=== PATIENT | female | born 1965 | race African-American/Black ===

== ENCOUNTER 2020-02-14 17:10 | Emergency (ER) | payer OTHER ==
[~2020-02-14] VITALS: Ht 162.6 cm; Wt 77.0 kg
[2020-02-14 17:14] VITALS: BP 122/73
[2020-02-14] MEDS ORDERED: IV NORMAL SALINE 1,000ML 1,000 ML IV ONE (17:45)
[2020-02-14] MEDS ORDERED: ONDANSETRON PF 4 MG/2 ML VIAL. IVP ONE ×2 (17:45→18:15)
[2020-02-14] MEDS ORDERED: MORPHINE SULFATE 4 MG/ML DISP.SYRIN. IV ONE ×2 (17:45→19:45)
[2020-02-14] MEDS ORDERED: IV NORMAL SALINE 1,000ML 1,000 ML IV SCH (18:15)
[2020-02-14 18:30] LABS: CALCIUM 10.2 mg/dL (8.5-10.1); GFR 70.5; POTASSIUM 3.6 mmol/L (3.5-5.1)
[2020-02-14] MEDS ORDERED: IOHEXOL 300 MG/ML 75 ML VIAL. IV ONE (18:30)
[2020-02-14 18:31] LABS: BASO % 0 % (0-3); EOS % 0 % (0-3); HEMATOCRIT 40.9 % (36.0-47.0); HEMOGLOBIN 13.7 g/dL (12.0-15.5); LYMPH # 1.4 x10^3/uL (1.0-4.8); LYMPH % 14 % (24-48); MEAN CORPUSCULAR HEMOGLOBIN 29 pg (25-35); MEAN CORPUSCULAR HGB CONC 34 g/dL (31-37); MEAN CORPUSCULAR VOLUME 88 fL (79-100); MONO # 0.6 x10^3/uL (0.0-1.1); MONO % 6 % (0-9); NEUT # 8.2 x10^3uL (1.8-7.7); NEUT % 80 % (31-73); PLATELET COUNT 316 x10^3/uL (140-400); RED BLOOD COUNT 4.67 x10^6/uL (3.50-5.40); WHITE BLOOD COUNT 10.3 x10^3/uL (4.0-11.0)
[2020-02-14 18:35] LABS: TOTAL BILIRUBIN 0.3 mg/dL (0.2-1.0)
--- NOTE | 2020-02-14 18:43 | PHYS DOC ---
Past History Past Medical History: No Pertinent History, Other Additional Past Medical Histor: back problem Alcohol Use: None Adult General Chief Complaint Chief Complaint: ABDOMINAL PAIN HPI HPI Patient is a 54-year-old female who presents with abdominal pain. Onset was this morning at 0600 hrs. without any known inciting event or trauma. Nothing known makes better, nothing is been ingested to attempt to alleviate her pain. Certain body positions make worse, she has not been able to eat since onset. Pain is generalized and diffuse, reports greatest pain in bilateral lower quadrants. She has history of numerous C-sections, still has her appendix. She denies any fever, no COVID-19 contact, no chest pain, shortness of breath, urinary symptoms, or changes in bowel habits. Patient does admit abdominal pain per above, associated nausea with x1 episode of nonbloody bilious nonbloody emesis, feelings of anorexia, and generalized fatigue. Review of Systems Review of Systems Fourteen body systems of review of systems have been reviewed. See HPI for pertinent positives and negative responses, other burns all other systems are negative, non-pertinent or non-contributory Current Medications Current Medications Current Medications Medications (Trade) Dose Ordered Sig/Victor Manuel Start Time Stop Time Status Last Admin Dose Admin Iohexol (Omnipaque 300 Mg/ml) 75 ml 1X ONCE 02/14/20 18:30 02/14/20 18:31 DC Morphine Sulfate (Morphine 4mg Syringe) 4 mg 1X ONCE 02/14/20 17:45 02/14/20 17:57 DC 02/14/20 17:58 4 MG Ondansetron HCl (Zofran) 4 mg 1X ONCE 02/14/20 18:15 02/14/20 18:28 DC Sodium Chloride 1,000 ml @ 1,000 mls/hr Q1H 02/14/20 18:15 02/14/20 19:14 Allergies Allergies Allergies Coded Allergies Type Severity Reaction Last Updated Verified meloxicam Allergy Unknown 02/14/20 Yes sulfamethoxazole Allergy Unknown 02/14/20 Yes trimethoprim Allergy Unknown 02/14/20 Yes Physical Exam Physical Exam Constitutional: Well developed, well nourished, moderate distress, non-toxic appearance. Ambulatory to ER room HENT: Normocephalic, atraumatic, bilateral external ears normal, oropharynx moist, no oral exudates, nose normal. Eyes: PERRLA, EOMI, conjunctiva normal, no discharge. Neck: Normal range of motion, no tenderness, supple, no stridor. Cardiovascular: Heart rate regular, sinus rhythm, no murmurs rubs or gallops Lungs & Thorax: Bilateral breath sounds clear to auscultation Abdomen: Bowel sounds normal, soft, guarding present, diffuse tenderness with moderate palpation, positive rebound, no masses, no pulsatile masses. Nonsurgical abdomen, no peritoneal signs Skin: Warm, dry, no erythema, no rash. Back: No tenderness, no CVA tenderness. Extremities: No tenderness, no cyanosis, no clubbing, ROM intact, no edema. Neurologic: Alert and oriented X 3, grossly normal motor & sensory function, no focal deficits noted. Psychologic: Affect normal, judgement normal, mood normal. Current Patient Data Vital Signs Vital Signs Date Time Temp Pulse Resp B/P (MAP) Pulse Ox O2 Delivery O2 Flow Rate FiO2 02/14/20 17:58 18 99 02/14/20 17:14 98.2 76 122/73 (89) Room Air Lab Results Laboratory Tests Test 02/14/20 17:25 White Blood Count 10.3 x10^3/uL (4.0-11.0) Red Blood Count 4.67 x10^6/uL (3.50-5.40) Hemoglobin 13.7 g/dL (12.0-15.5) Hematocrit 40.9 % (36.0-47.0) Mean Corpuscular Volume 88 fL (79-100) Mean Corpuscular Hemoglobin 29 pg (25-35) Mean Corpuscular Hemoglobin Concent 34 g/dL (31-37) Red Cell Distribution Width 14.0 % (11.5-14.5) Platelet Count 316 x10^3/uL (140-400) Neutrophils (%) (Auto) 80 % (31-73) H Lymphocytes (%) (Auto) 14 % (24-48) L Monocytes (%) (Auto) 6 % (0-9) Eosinophils (%) (Auto) 0 % (0-3) Basophils (%) (Auto) 0 % (0-3) Neutrophils # (Auto) 8.2 x10^3uL (1.8-7.7) H Lymphocytes # (Auto) 1.4 x10^3/uL (1.0-4.8) Monocytes # (Auto) 0.6 x10^3/uL (0.0-1.1) Eosinophils # (Auto) 0.0 x10^3/uL (0.0-0.7) Basophils # (Auto) 0.0 x10^3/uL (0.0-0.2) Sodium Level 138 mmol/L (136-145) Potassium Level 3.6 mmol/L (3.5-5.1) Chloride Level 101 mmol/L (98-107) Carbon Dioxide Level 28 mmol/L (21-32) Anion Gap 9 (6-14) Blood Urea Nitrogen 13 mg/dL (7-20) Creatinine 1.0 mg/dL (0.6-1.0) Estimated GFR (Cockcroft-Gault) 70.5 BUN/Creatinine Ratio 13 (6-20) Glucose Level 119 mg/dL (70-99) H Calcium Level 10.2 mg/dL (8.5-10.1) H Total Bilirubin 0.3 mg/dL (0.2-1.0) Aspartate Amino Transferase (AST) 25 U/L (15-37) Alanine Aminotransferase (ALT) 46 U/L (14-59) Alkaline Phosphatase 78 U/L (46-116) Total Protein 8.0 g/dL (6.4-8.2) Albumin 4.0 g/dL (3.4-5.0) Albumin/Globulin Ratio 1.0 (1.0-1.7) Lipase 52 U/L (73-393) L EKG EKG EKG ordered and interpreted by myself at 1842 hrs. as sinus rhythm at 77 bpm, unremarkable intervals, no axis deviation, no ischemic findings, no fascicular blocks, no STEMI Radiology/Procedures Radiology/Procedures PROCEDURE: CT ABD PELV W/ IV CONTRST ONLY CT ABD PELV W/ IV CONTRST ONLY Indication: Left lower quadrant pain, nausea and vomiting Technique: Postcontrast CT imaging was performed of the abdomen and pelvis, multiplanar reconstruction images submitted. No oral contrast was given. One or more of the following individualized dose reduction techniques were utilized for this examination: 1. Automated exposure control 2. Adjustment of the mA and/or kV according to patient size 3. Use of iterative reconstruction technique. Comparison: None Findings: There is some motion. There is no abnormality of the limited visualized lung bases. There is visualization of the pancreatic duct at the level of the head and body. There is a small hypodense lesion of the posterior right lobe of the liver about 0.6 cm and also small 0.3 cm hypodense focus of the left lobe of the liver otherwise too small to further accurately characterize. Gallbladder is present without obvious intraluminal abnormality by CT. Both kidneys enhance, no hydronephrosis. Accurate evaluation of bowel is limited without oral contrast. There is small quantity of free fluid in the dependent pelvis. There is fluid filled, dilated appendix about 1.2 cm in greatest caliber, focus of hyperdensity in the lumen proximally about 1.1 cm likely appendicolith. Findings are best seen on images [id number] series 2. There is mild enhancement of the porter of the more distal appendix. There is multilevel lumbar facet degenerative change greater inferiorly. IMPRESSION: 1. There is evidence of acute appendicitis, appendicolith in the proximal lumen. There is mild free fluid in the dependent pelvis. 2. A couple of small hypodense foci of the liver are too small to further accurately characterize. Electronically signed by: Sanya Larson MD (02/14/2020 7:14 PM) [facility] Course & Med Decision Making Course & Med Decision Making Patient seen on immediate ER arrival, ambulatory but in pain ABCs grossly unremarkable Conference of history and physical exam performed, subsequent labs and imaging studies ordered IV access obtained, 1 L normal saline, 4 mg IV morphine, and total of 8 mg morphine administered with great improvement in patient's symptoms Nonetheless, ER course reviewed, physical exam and diagnostic studies consistent with acute appendicitis Dr. Capellan, hospitalist at [facility] contacted and agreed for admission. Dr. Stokes, on-call surgeon was also called and notified of patient transfer Patient started on 2 g IV cefoxitin antibiotics prior to transport All questions and concerns addressed, patient agreeable to transport to [facility] for continued medical management and consideration for surgical intervention Michele Disclaimer Dragcallie Disclaimer This electronic medical record was generated, in whole or in part, using a voice recognition dictation system. Departure Departure: Impression: Primary Impression: Acute appendicitis Disposition: 05 TRANSFER OTHER ([facility] UNDER CARE OF DR CARR) Admitting Physician: Other (DR. CARR) Condition: STABLE Referrals: PCP,NO (PCP) Justification of Admission: Justification of Admission: Justification of Admission Dx: Yes (ACUTE APPENDICITIS) JOSE JONES DO Feb 14, 2020 18:43
--- NOTE | 2020-02-14 19:17 | RAD ---
CT ABD PELV W/ IV CONTRST ONLY Indication: Left lower quadrant pain, nausea and vomiting Technique: Postcontrast CT imaging was performed of the abdomen and pelvis, multiplanar reconstruction images submitted. No oral contrast was given. One or more of the following individualized dose reduction techniques were utilized for this examination: 1. Automated exposure control 2. Adjustment of the mA and/or kV according to patient size 3. Use of iterative reconstruction technique. Comparison: None Findings: There is some motion. There is no abnormality of the limited visualized lung bases. There is visualization of the pancreatic duct at the level of the head and body. There is a small hypodense lesion of the posterior right lobe of the liver about 0.6 cm and also small 0.3 cm hypodense focus of the left lobe of the liver otherwise too small to further accurately characterize. Gallbladder is present without obvious intraluminal abnormality by CT. Both kidneys enhance, no hydronephrosis. Accurate evaluation of bowel is limited without oral contrast. There is small quantity of free fluid in the dependent pelvis. There is fluid filled, dilated appendix about 1.2 cm in greatest caliber, focus of hyperdensity in the lumen proximally about 1.1 cm likely appendicolith. Findings are best seen on images 61-65 series 2. There is mild enhancement of the porter of the more distal appendix. There is multilevel lumbar facet degenerative change greater inferiorly. IMPRESSION: 1. There is evidence of acute appendicitis, appendicolith in the proximal lumen. There is mild free fluid in the dependent pelvis. 2. A couple of small hypodense foci of the liver are too small to further accurately characterize. Electronically signed by: Sanya Larson MD (02/14/2020 7:14 PM) [facility]ITALСергей
[2020-02-14 19:30] LABS: CLARITY,URINE CLEAR; COLOR,URINE YELLOW
[2020-02-14 19:31] LABS: BILIRUBIN,URINE NEG (NEG); GLUCOSE,URINE NEG (NEG)
[2020-02-14 19:33] LABS: NITRITE,URINE NEG (NEG); UROBILINOGEN,URINE 0.2 mg/dL (0.2 mg/dL)
--- NOTE | 2020-02-14 20:06 | EKG ---
[facility] ED [facility] [place] [id number] Test Date: 2020-02-14 Test Time: 18:37:13 Pat Name: KATHLEEN LEWIS Department: Room: Gender: F Development Associate: ALICJA : 1965 Requested By: JOSE JONES Order Number: [id number] Reading MD: Measurements Intervals [place] Rate: 77 P: 59 NH: 160 QRS: 24 QRSD: 90 T: 36 QT: 392 QTc: 445 Interpretive Statements SINUS RHYTHM NORMAL ECG RI6.02 No previous ECG available for comparison
[2020-02-14 20:11] LABS: BACTERIA,URINE 0 /HPF (0-FEW); RBC,URINE RARE /HPF (0-2); WBC,URINE 0 /HPF (0-4)
== END 2020-02-14 22:50 | disposition short-term general hospital (02) ==
LOC: ER 17:10
DX: K35.80 Unspecified acute appendicitis (principal); Z88.1 Allergy status to other antibiotic agents; Z88.2 Allergy status to sulfonamides; Z88.8 Allergy status to other drugs, medicaments and biological substances
CPT/HCPCS: 36415; 74177; 80053; 81001; 83690; 84484; 85025; 93005; 96361; 96365; 96375; 96376; 99285; J0694; J2270; J2405; J7030; Q9967